=== PATIENT | female | born 1955 | race Caucasian/White ===

== ENCOUNTER → 2018-06-10 | Outpatient (CLI) | payer MEDICARE, OTHER ==
[2018-06-10 06:36] LABS: Blood Urea Nitrogen 14 mg/dL (7-17)
--- NOTE | 2018-06-10 08:11 | MR ---
EXAMINATION TYPE: MR cervical spine wo/w con DATE OF EXAM: 06/10/2018 COMPARISON: Prior exam 08/03/2015 MR cervical spine HISTORY: Neck and lt arm pain TECHNIQUE: Multiplanar, multisequence images of the cervical spine were acquired utilizing 7.5 mL intravenous Ga davist gadolinium contrast. Diffusion weighted imaging was performed. C2-C3: No evidence for degenerative disc disease. No disc bulge/herniation or protrusion. No Canal stenosis. Foramina are patent bilaterally. C3-C4: There is broad-based posterior disc bulge possibly contacting the anterior cervical cord. Endp late disc complex extends laterally to cause some foraminal encroachment greater on the right. On mil d central canal stenosis. C4-C5: There is a posterior central disc herniation causing mass effect on the anterior cervical cord . Lateral extension of endplate disc complex results in some foraminal encroachment bilaterally right greater than left. Mild to moderate central canal stenosis. C5-C6: No evident disc herniation. Mild foraminal encroachment present bilaterally. No significant ce ntral stenosis. C6-C7: Posterior extension of endplate disc complex results in moderate central canal stenosis. Bilat eral foraminal encroachment is present due to lateral extension endplate disc complex. C7-T1: No evidence for degenerative disc disease. No disc bulge/herniation or protrusion. No Canal stenosis. Foramina are patent bilaterally. Cervical segments are intact. There is normal alignment. Cervical spinal cord is of normal signal. Craniovertebral junction relationships are within normal limits. There has been interval anterior c ervical fusion and discectomy at C5-C6, susceptibility artifact is present due to patient's hardware. Cervical vertebral bodies show preserved height, alignment. There is multilevel spondylosis present. Marrow signal maintained. No abnormal enhancement following contrast administration. IMPRESSION: Postoperative changes. Disc herniation present at C4-5 as on prior exam. Findings are similar.
== END | disposition home or self-care (01) ==
LOC: RADMRIMAIN 06:04
PROVIDERS: ATTEND Orthopaedic Surgery Orthopaedic Surgery of the Spine
DX: M54.2 Cervicalgia (principal); Z98.890 Other specified postprocedural states; M50.11 Cervical disc disorder with radiculopathy, high cervical region; M25.511 Pain in right shoulder; M75.41 Impingement syndrome of right shoulder; M25.512 Pain in left shoulder
CPT/HCPCS: 82565; 84520; 72156; 36415; A9581

== ENCOUNTER → 2018-07-09 | Outpatient (CLI) | payer MEDICARE, OTHER ==
--- NOTE | 2018-07-09 13:11 | MR ---
EXAMINATION TYPE: MR shoulder LT wo con DATE OF EXAM: 07/09/2018 6:32 AM COMPARISON: NONE HISTORY: Left shoulder pain TECHNIQUE: Multiplanar multispin echo imaging of the left shoulder was performed. FINDINGS: Rotator cuff : Mild heterogeneity supraspinatus tendon compatible chronic tendinopathy. There is no c omplete or bursal/articular sided partial rotator cuff tear. The subscapularis constituent of the rot ator cuff is intact. Bursa: No bursal effusion or thickening is seen. Musculature: There is no muscular tear, contusion, or atrophy. Acromioclavicular joint : There are mild degenerative changes of the acromioclavicular joint. Lateral downsloping of the acromion resulting in mild impingement. Small subacromial spur noted as well. Osseous structures : There are no fractures or regions of abnormal bone marrow signal intensity. Long biceps tendon : The biceps tendon is normally situated within the bicipital groove. No complete or partial biceps tendon tear is present. Glenohumeral Joint fluid : There is no glenohumeral joint effusion. Cartilage and Bone : No focal hyaline cartilage defects are noted. No Hill-Sachs, reverse Hill-Sachs, or bony Bankart lesions are seen. Labrum : There are no SLAP or soft tissue Bankart lesions. No paralabral cysts are seen. OTHER FINDINGS : none IMPRESSION: 1. Chronic tendinopathy supraspinatus tendon without evidence for tear. Mild subacromial impingement.
== END | disposition home or self-care (01) ==
LOC: RADMRIMAIN 05:55
PROVIDERS: ATTEND Orthopaedic Surgery Orthopaedic Surgery of the Spine
DX: M67.814 Other specified disorders of tendon, left shoulder (principal); M25.812 Other specified joint disorders, left shoulder